=== PATIENT | male | born 1970 | race Caucasian/White ===

== ENCOUNTER 2017-07-17 14:17 | Emergency (ER) | payer OTHER ==
--- NOTE | 2017-07-17 14:38 | EDPHY ---
H & P Stated Complaint: dentist noticed htn on thursday/ mild numbness l 5th digit Time Seen by Provider: 07/17/17 14:37 HPI/ROS: CHIEF COMPLAINT: Hypertension HISTORY OF PRESENT ILLNESS: The patient presents to the ED with newly diagnosed hypertension. It was 1st noticed in his dentist office last week. It reportedly has been in the 160/100 range. The patient does have an appointment to see his primary care provider on Thursday. The patient reportedly has cut back on his alcohol which was 4-5 glasses of wine a day and caffeine. Today he noticed that his blood pressure continued to be elevated. He had some transient paresthesias in his 4/5th finger prompting his visit to the emergency department. He denies any chest pain, shortness of breath or other concerns. REVIEW OF SYSTEMS: A comprehensive 10 point review of systems is otherwise negative aside from elements mentioned in the history of present illness. Source: Patient - Personal History Current Tetanus/Diphtheria Vaccine: Yes - Medical/Surgical History Hx Asthma: No Hx Chronic Respiratory Disease: No Hx Diabetes: No Hx Cardiac Disease: No Hx Renal Disease: No Hx Cirrhosis: No Hx Alcoholism: No Hx HIV/AIDS: No Hx Splenectomy or Spleen Trauma: No Other PMH: denies - Social History Smoking Status: Never smoked - Physical Exam Exam: General Appearance: Alert, no distress Eyes: Pupils equal and round no pallor or injection ENT, Mouth: Mucous membranes moist Respiratory: There are no retractions, lungs are clear to auscultation Cardiovascular: Regular rate and rhythm Gastrointestinal: Abdomen is soft and nontender, no masses, bowel sounds normal Neurological: A&O, normal motor function, normal sensory exam, normal cranial nerves Skin: Warm and dry, no rashes Musculoskeletal: Neck is supple nontender Extremities: symmetrical, full range of motion Constitutional: Initial Vital Signs Temperature (C) 36.5 C 07/17/17 14:21 Heart Rate 62 07/17/17 14:21 Respiratory Rate 19 07/17/17 14:21 Blood Pressure 164/94 H 07/17/17 14:21 O2 Sat (%) 99 07/17/17 14:21 O2 Delivery Mode Room Air Allergies/Adverse Reactions: No Known Allergies Allergy (Unverified 07/17/17 14:21) Home Medications: Medication Instructions Recorded NK [No Known Home Meds] 07/17/17 Medical Decision Making - Diagnostics EKG Interpretation: EKG: Complete interpretation has been separately recorded in the [facility] archive. Summary impression: Sinus rhythm, rate 58 ED Course/Re-evaluation: The patient presents to the ED with newly diagnosed mild hypertension. The patient has no evidence of end-organ dysfunction. The patient tells me he has been cutting back on his alcohol since he was diagnosed with hypertension at the dentist office. He has no evidence of marek alcohol withdrawal. He did have some paresthesias in his left 4th and 5th finger which resolved. The patient has been using a wrist blood pressure cuff which I believe likely precipitated some ulnar neurapraxia. The patient is scheduled to see his primary care provider on Thursday. I will not start blood pressure medications at this point time. Patient's blood pressure has come down to 144/92 in the emergency department without management. Departure - Departure Disposition: Home, Routine, Self-Care Clinical Impression: Hypertension Condition: Good Instructions: Hypertension (ED) Additional Instructions: Your blood pressure in the emergency department at discharge is 144/92. Please follow up with your primary care provider for a blood pressure recheck on Thursday. Return to the ED for any severe chest pain, shortness of breath or blood pressure persistently over 180/110. Referrals: Kath Bynum MD [Primary Care Provider] - As per Instructions
--- NOTE | 2017-07-17 14:41 | CPEKG ---
Heart Rate: 58 RR Interval: 1034 P-R Interval: 192 QRSD Interval: 90 QT Interval: 456 QTC Interval: 448 P [place]: -5 QRS [place]: 73 T Wave [place]: 51 EKG Severity - ABNORMAL ECG - EKG Impression: SINUS RHYTHM Electronically Signed By: Aguila Trevino 17-Jul-2017 15:04:43
[2017-07-17 15:21] VITALS: BP 144/92
== END 2017-07-17 15:21 | disposition home or self-care (01) ==
DX: I10 Essential (primary) hypertension (principal)